=== PATIENT | male | born 1930 | race Caucasian/White ===

== ENCOUNTER 2019-04-23 08:05 | Day surgery (SDC) | payer OTHER, MEDICARE ==
--- OUTSIDE RECORDS SUMMARY | 2019-04-23 08:08 | XMS REPORT | Summary of Care ---
:1930 Author Organization [facility] Address [address] [place] [address]- Encounter HQ Encntr_alijavier(FIN) [phone] Date(s): 07/24/18 - 07/25/18 [facility] [place] [address] [place] [address]- [phone] Vital Signs No data available for this section Problem List Condition Effective Dates Status Health Status Informant Memory loss(Confirmed) Active CTS (carpal tunnel Active syndrome)(Confirmed) Mild dementia(Confirmed) Active Depression(Confirmed) Active Diabetes mellitus type II(Confirmed) Active HTN - Hypertension(Confirmed) Active Hyperlipidemia(Confirmed) Active Paresthesias(Confirmed) Active Right shoulder pain(Confirmed) Active Allergies, Adverse Reactions, Alerts No Known Medication Allergies Medications No data available for this section Results No data available for this section Immunizations No data available for this section Procedures No data available for this section Social History Social History Type Response Smoking Status Never smoker; Exposure to Tobacco Smoke None; Cigarette Smoking Last 365 Days No; Reg Smoking Cessation Counseling No entered on: 01/01/19 Assessment and Plan No data available for this section
--- OUTSIDE RECORDS SUMMARY | 2019-04-23 08:08 | XMS REPORT | Summary of Care ---
:1930 Author Organization [facility] [place] Address [address] [place] [address]- Encounter HQ Denise(GUY) [phone] Date(s): 01/01/19 - 01/01/19 [facility] [place] [address] [place] [address]- [phone] Discharge Disposition: Home or Self Care Attending Physician: Jean-Paul Gudino MD Vital Signs Most recent to oldest [Reference Range]: 1 Height 162.56 cm (01/01/19 1:51 PM) Blood Pressure [90-140/60-90 mmHg] 107/41 mmHg (01/01/19 1:51 PM) Respiratory Rate [14-20 BRMIN] 16 BRMIN (01/01/19 1:51 PM) Peripheral Pulse Rate [60-100 bpm] 58 bpm *LOW* (01/01/19 1:51 PM) Weight 54.091 kg (01/01/19 1:51 PM) Body Mass Index 20.47 m2 (01/01/19 1:51 PM) Problem List Condition Effective Dates Status Health Status Informant Memory loss(Confirmed) Active CTS (carpal tunnel Active syndrome)(Confirmed) Mild dementia(Confirmed) Active Depression(Confirmed) Active Diabetes mellitus type II(Confirmed) Active HTN - Hypertension(Confirmed) Active Hyperlipidemia(Confirmed) Active Paresthesias(Confirmed) Active Right shoulder pain(Confirmed) Active Allergies, Adverse Reactions, Alerts No Known Medication Allergies Medications Januvia 50 mg, PO, Daily, 0 Refill(s) Start Date: 01/01/19 Status: Orderedmemantine 10 mg oral tablet 10 mg=1 tab, PO, BID, # 60 tab, 3 Refill(s), Pharmacy: [email or web address] [id number] Start Date: 01/01/19 Stop Date: 05/01/19 Status: Orderedmirtazapine 7.5 mg, PO, Bedtime, 0 Refill(s) Start Date: 01/01/19 Status: OrderedPreserVision AREDS 2 1 cap, PO, BID, 0 Refill(s) Start Date: 01/01/19 Status: Ordered Results No data available for this section [...]
--- OUTSIDE RECORDS SUMMARY | 2019-04-23 08:08 | XMS REPORT | Summary of Care ---
:1930 Author Organization [facility] [place] Address [address] [place] [address]- Encounter HQ Denise(GUY) [phone] Date(s): 07/17/18 - 07/17/18 [facility] [place] [address], [place] [address]- [phone] Discharge Disposition: Home or Self Care Attending Physician: Jean-Paul Gudino MD Referring Physician: Jean-Paul Gudino MD Vital Signs Most recent to oldest [Reference Range]: 1 Height 162.56 cm (07/17/18 1:24 PM) Blood Pressure [90-140/60-90 mmHg] 140/49 mmHg (07/17/18 1:24 PM) Peripheral Pulse Rate [60-100 bpm] 70 bpm (07/17/18 1:24 PM) Weight 58.636 kg (07/17/18 1:24 PM) Body Mass Index 22.19 m2 (07/17/18 1:24 PM) Problem List Condition Effective Dates Status Health Status Informant Memory loss(Confirmed) Active CTS (carpal tunnel Active syndrome)(Confirmed) Mild dementia(Confirmed) Active Depression(Confirmed) Active Diabetes mellitus type II(Confirmed) Active HTN - Hypertension(Confirmed) Active Hyperlipidemia(Confirmed) Active Paresthesias(Confirmed) Active Right shoulder pain(Confirmed) Active Allergies, Adverse Reactions, Alerts No Known Medication Allergies Medications galantamine 4 mg oral tablet 4 mg=1 tab, PO, BID, # 60 tab, 3 Refill(s), Pharmacy: [facility] [id number] Start Date: 07/19/18 Stop Date: 10/18/18 Status: Discontinuedmemantine 5 mg oral tablet =1 tab, PO, BID, # 60 tab, Refill(s) 2, Pharmacy: [facility] [id number] Start Date: 11/13/18 Stop Date: 01/01/19 Status: DiscontinuedNamenda 5 mg oral tablet 5 mg=1 tab, PO, BID, # 60 tab, 3 Refill(s), Pharmacy: [facility] [id number] Start Date: 07/19/18 Stop Date: 11/13/18 Status: Completed Results No data available for this section [...]
--- OUTSIDE RECORDS SUMMARY | 2019-04-23 08:08 | XMS REPORT | Continuity of Care Document ---
:1930 Author Organization [facility] Care Team Providers Name Role Phone [facility] Unavailable Unavailable Problems Problem Status Onset Classification Date Comments Source Date Reported Memory loss Active Problem 02/12/2019 [facility] CTS (Confirmed) Active Problem 02/12/2019 [facility] Mild dementia Active Problem 02/12/2019 [facility] Depression Active Problem 02/12/2019 [facility] Diabetes mellitus Active Problem 02/12/2019 [facility] type II Neuro HTN - Hypertension Active Problem 02/12/2019 [facility] Hyperlipidemia Active Problem 02/12/2019 [facility] Paresthesias Active Problem 02/12/2019 [facility] Right shoulder Active Problem 02/12/2019 [facility] pain [facility] Amnesia (finding) Active Problem 04/15/2019 [facility] Carpal tunnel Active Problem 04/15/2019 [facility] syndrome [facility] (disorder) Dementia Active Problem 04/15/2019 [facility] (disorder) [facility] Depressive Active Problem 04/15/2019 [facility] disorder Neuro (disorder) Diabetes mellitus Active Problem 04/15/2019 [facility] type 2 (disorder) 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, systemic Neuro arterial (disorder) Hyperlipidemia Active Problem 04/15/2019 [facility] (disorder) [facility] Paresthesia Active Problem 04/15/2019 [facility] (finding) [facility] Shoulder pain Active Problem 04/15/2019 [facility] (finding) Neuro Medications Medication Details Route Status Patient Ordering Order Source Instructions Provider Date memantine 5 mg 5 mg=1 tab, Active [facility] oral tablet PO, BID, # 019 [facility] 60 tab, 0 Refill(s), other memantine 10 mg 10 mg=1 tab, Active [facility] oral tablet PO, BID, # 019 [facility] 60 tab, 3 Refill(s), Pharmacy: [facility] [id number] PreserVision 1 cap, PO, Active [facility] AREDS 2 BID, 0 019 [facility] Refill(s) Januvia 50 mg, PO, Active 05/28/2 [facility] Daily, 0 019 [facility] Refill(s) Mirtazapine 7.5 mg, PO, Active [facility] Bedtime, 0 019 [facility] Refill(s) memantine 5 mg =1 tab, PO, No Longer [facility] oral tablet BID, # 60 Active 019 [facility] tab, Refill(s) 2, Pharmacy: [facility] [id number] galantamine 4 mg 4 mg=1 tab, No Longer [facility] oral tablet PO, BID, # Active 018 [facility] 60 tab, 3 Refill(s), Pharmacy: [facility] [id number] Memantine 5 mg=1 tab, No Longer [facility] hydrochloride 5 PO, BID, # Active 018 [facility] MG Oral Tablet 60 tab, 3 [Namenda] Refill(s), Pharmacy: [facility] [id number] Allergies, Adverse Reactions, Alerts Substance Category Reaction Severity Reaction Status Date Comments Source type Reported No Known Assertion [facility] Allergies Immunizations No Data Provided for This Section Results No Data Provided for This Section Pathology Reports No Data Provided for This Section Diagnostic Reports No Data Provided for This Section Consultation Notes No Data Provided for This Section Discharge Summaries No Data Provided for This Section History and Physicals No Data Provided for This Section Vital Signs Vital Sign Value Date Comments Source Systolic (mm Hg) 128 04/12/2019 [facility] Diastolic (mm Hg) 48 04/12/2019 [facility] Heart Rate 64 04/12/2019 [facility] Respitory Rate 16 04/12/2019 [facility] Height 160.02 cm 04/12/2019 [facility] Weight 56.364 04/12/2019 [facility] BMI Calculated 22.01 04/12/2019 [facility] Weight 54.091 01/01/2019 [facility] Height 162.56 cm 01/01/2019 [facility] BMI Calculated 20.47 01/01/2019 [facility] Respitory Rate 16 01/01/2019 [facility] Heart Rate 58 01/01/2019 [facility] Systolic (mm Hg) 107 01/01/2019 [facility] Diastolic (mm Hg) 41 01/01/2019 [facility] Weight 58.636 07/17/2018 [facility] BMI Calculated 22.19 07/17/2018 [facility] Height 162.56 cm 07/17/2018 [facility] Systolic (mm Hg) 140 07/17/2018 [facility] Diastolic (mm Hg) 49 07/17/2018 [facility] Heart Rate 70 07/17/2018 [facility] Encounters Location Location Encounter Encounter Reason Attending ADM DC Status Source Details Type Number For Provider Date Date Visit Outpatient [id number] [place] 09/22 Active [facility] [facility] [id number] [place] 10/19 Active [facility] Out[facility] [id number] [place] 01/18 Active [facility] [place] [facility] [id number] [place] 02/22 Active [facility] [place] Outpatient [id number] [place] 03/27 Active [facility] [place] Outpatient [id number] [place] 07/17 Active [facility] [place] [facility] [id number] [place] 07/17 07/18 [facility] [place] [facility] Phone [phone] 07/24 07/26 [facility] [place] Outpatient [id number] [place] 10/18 Active [facility] [place] Outpatient [id number] [place] 01/01 Active [facility] [place] [facility] [id number] [place] 01/01 01/02 [facility] [place] Outpatient [id number] [place] 04/12 Active [facility] [id number] [place] 04/12 04/13 [facility] [place] Outpatient [id number] [place] 08/13 Active [facility] [place] Procedures No Data Provided for This Section Assessment and Plan No Data Provided for This Section Plan of Care No Data Provided for This Section Social History Social History Date Source Social History TypeResponse 04/12/[facility] Smoking Status Never smoker; Exposure to Tobacco Smoke None; Cigarette Smoking Last 365 Days No; Reg Smoking Cessation Counseling No entered on: 04/12/19 Family History No Data Provided for This Section Advance Directives No Data Provided for This Section Functional Status No Data Provided for This Section
--- OUTSIDE RECORDS SUMMARY | 2019-04-23 08:08 | XMS REPORT | Clinical Summary ---
:1930 Author Organization [facility] Address [address] [place] [address] Care Team Providers Name Role Phone Fortino Shore MD Primary Care Provider Allergies No Known Allergies Medications Medication Sig Dispensed Refills Start Date End Date Status pantoprazole TK 1 T PO QD PRF 6 07/25/2016 Active (PROTONIX) 40 MG HEARTBURN AND EC tablet INDIGESTION FERROUS SULFATE, Take 1 tablet 0 Active BULK, MISC daily as directed aspirin (ECOTRIN) Take 81 mg by 0 Active 81 MG enteric mouth daily. coated tablet atorvastatin TK 1 T PO QHS 12 06/24/2017 Active (LIPITOR) 40 MG tablet metoprolol TK 1 T PO QD. 3 06/20/2017 Active succinate XL STOP METOPROLOL (TOPROL-XL) 50 mg 25MG 24 hr tablet cyanocobalamin, Take by mouth. 0 Active vitamin B-12, (VITAMIN B-12) 500 mcg tablet extended release amLODIPine Take 5 mg by 0 Active (NORVASC) 5 mg mouth daily. tablet JANUVIA 50 mg 0 03/22/2018 Active tablet memantine TK 1 T PO BID 3 07/20/2018 Active (NAMENDA) 5 MG tablet mirtazapine Take 7.5 mg by 0 Active (REMERON) 15 MG mouth nightly. tablet vit A/vit C/vit Take by mouth. 0 Active E/zinc/copper (PRESERVISION AREDS ORAL) BENEFIBER, WHEAT Take by mouth. 0 Active DEXTRIN, ORAL FOLIC Take by mouth. 0 09/18/19 Discontinued ACID/MULTIVIT-MIN Take daily 19 (Therapy /LUTEIN (CENTRUM completed) SILVER ORAL) metFORMIN 3 06/20/2017 03/19/20 Discontinued (GLUCOPHAGE) 19 1,000 mg tablet lisinopril-hydroc Take 1 tablet by 90 tablet 3 08/29/2017 08/20/19 Discontinued hlorothiazide mouth daily. 19 (Reorder) (PRINZIDE,ZESTORE TIC) 20-12.5 mg per tablet sertraline 0 02/22/2018 12/07/19 Discontinued (ZOLOFT) 25 MG 19 tablet galantamine 4 mg 2 (two) 0 01/18/2018 03/19/20 Discontinued (RAZADYNE) 8 MG times a day. 19 tablet vit A/vit C/vit Take by mouth. 0 09/18/19 Discontinued E/zinc/copper 19 (Therapy (ICAPS AREDS completed) ORAL) melatonin 3 mg Take by mouth. 0 09/18/19 Discontinued tablet 19 (Therapy completed) lisinopril-hydroc TAKE 1 TABLET BY 90 tablet 3 08/20/2018 03/19/20 Discontinued hlorothiazide MOUTH EVERY DAY 19 (PRINZIDE,ZESTORE TIC) 20-12.5 mg per tablet polyethylene Take 17 g by 30 packet 0 12/08/2018 01/08/20 glycol (MIRALAX) mouth daily for 19 17 gram packet 30 days. psyllium husk Take 1 packet by 30 packet 0 12/08/2018 01/08/20 (METAMUCIL) 6 mouth daily for 19 gram packet 30 days. hydrocortisone-pr Apply 1 1 g 0 12/07/2018 01/07/20 amoxine (EPIFOAM) application 19 1-1 % foam topically 3 (three) times a day for 30 days. 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 Overview: 31mm History of coronary artery bypass graft 10/04/2016 Aortic valve disorder 09/20/2016 Encounters Date Type Specialty Care Team Description 03/19/2019 Office Visit Cardiology Ron Mercado S/P TAVR (transcatheter aortic valve replacement) (Primary Dx); MD Nolan History of coronary artery bypass graft 12/06/2018 Emergency General Internal Z[place]ma, Gastrointestinal hemorrhage with melena (Primary Dx); - Medicine Vaibhav Will, Chronic idiopathic constipation 12/07/2018 MD Badillo, MD Solange Mancuso Martina C., MD 09/27/2018 Multidisciplinary Visit Cardiology Joe Dalton S/P TAVR ( transcatheter aortic valve replacement) (Primary Dx); MD Fifi Coronary artery disease involving [place] heart with angina pectoris, unspecified vessel or lesion type (HCC); History of coronary artery bypass graft 09/18/2018 Office Visit Cardiology Ron Mercado Coronary artery disease involving [place] heart with angina pectoris, unspecified vessel or lesion type ( HCC) (Primary Dx); MD Nolan S/Taran TAVR (transcatheter aortic valve replacement); History of coronary artery bypass graft 08/20/2018 Refill Cardiology Ron Mercado Med Refill MD Nolan 05/07/2018 Orders Only Cardiology Mariela Hall S/P TAVR MA (transcatheter aortic valve replacement) (Primary Dx) after 04/22/2018 Family History Medical History Relation Name Comments Pancreatic cancer Brother Colon cancer Sister Relation Name Status Comments Brother Father Mother Sister Social History Tobacco Use Types Packs/Day Years Used Date Never Smoker Smokeless Tobacco: Never Used Alcohol Use Drinks/Week oz/Week Comments No Sex Assigned at Date Recorded Not on file Job Start Date Occupation Industry Not on file Not on file Not on file Travel History Travel Start Travel End No recent travel history available. Last Filed Vital Signs Vital Sign Reading Time Taken Comments Blood Pressure 142/65 03/19/2019 12:02 PM CDT Pulse 60 03/19/2019 12:02 PM CDT Temperature 35.6 C (96.1 F) 12/07/2018 3:51 PM CDT Respiratory Rate 17 12/07/2018 7:13 AM CDT Oxygen Saturation 97% 12/07/2018 3:51 PM CDT Inhaled Oxygen Concentration - - Weight 54.4 kg (120 lb) 03/19/2019 12:02 PM CDT Height 167.6 cm (5' 6") 03/19/2019 12:02 PM CDT Body Mass Index 19.37 03/19/2019 12:02 PM CDT Plan of Treatment Date Type Specialty Care Team Description 08/29/2019 Multidisciplinary Visit Cardiology Joe Dalton MD [address] [address] [phone] 09/24/2019 Office Visit Cardiology Ron Mercado MD [address] [facility] [address] [place] [address] [phone] Health Maintenance Due Date Last Done Comments SHINGLES VACCINES (#1) 1980 65+ PNEUMOCOCCAL VACCINE (1 of 2 - PCV13) 1995 INFLUENZA VACCINE 03/07/2019 04/12/2018 Procedures Procedure Name Priority Date/Time Associated Comments Diagnosis POC GLUCOSE Routine 12/07/2018 5:42 Results for this PM CDT procedure are in the results section. POC GLUCOSE Routine 12/07/2018 11:49 Results for this AM CDT procedure are in the results section. POC GLUCOSE Routine 12/07/2018 7:12 Results for this AM CDT procedure are in the results section. TOTAL IRON BINDING Routine 12/07/2018 5:00 Results for this CAPACITY AM CDT procedure are in the results section. FOLATE RBC (GROUP TEST) Routine 12/07/2018 5:00 Results for this AM CDT procedure are in the results section. FERRITIN LEVEL Routine 12/07/2018 5:00 Results for this AM CDT procedure are in the results section. ESTIMATED GFR Routine 12/07/2018 5:00 Results for this AM CDT procedure are in the results section. BASIC METABOLIC PANEL Routine 12/07/2018 5:00 Results for this AM CDT procedure are in the results section. HC COMPLETE BLD COUNT Routine 12/07/2018 5:00 Results for this W/AUTO DIFF AM CDT procedure are in the results section. POC GLUCOSE Routine 12/07/2018 12:13 Results for this AM CDT procedure are in the results section. OCCULT BLOOD, STOOL Routine 12/06/2018 11:00 Results for this PM CDT procedure are in the results section. ESTIMATED GFR STAT 12/06/2018 2:33 Results for this PM CDT procedure are in the results section. COMPREHENSIVE METABOLIC STAT 12/06/2018 2:33 Results for this PANEL PM CDT procedure are in the results section. HC COMPLETE BLD COUNT STAT 12/06/2018 2:33 Results for this W/AUTO DIFF PM CDT procedure are in the results section. ECG 12-LEAD Routine 09/27/2018 1:26 S/P TAVR Results for this PM PARKING INSPECTOR (transcatheter procedure are in aortic valve the results replacement) section. ECHOCARDIOGRAM 2D Routine 09/27/2018 12:02 S/P TAVR Results for this COMPLETE W MMODE PM PARKING INSPECTOR (transcatheter procedure are in SPECTRAL COLOR DOPPLER aortic valve the results (60497) replacement) section. ECG 12-LEAD Routine 09/18/2018 11:45 Coronary artery Results for this AM PARKING INSPECTOR disease involving procedure are in [place] heart with the results angina pectoris, section. unspecified vessel or lesion type (HCC) after 04/22/2018 Results POC glucose (12/07/2018 5:42 PM CDT)Only the most recent of4 resultswithin the time period is included. [facility] POC glucose 180 (H) 65 - 99 mg/dL [facility] Notified RN Meter ID: [id number] [employer] Former Supervisor: Marion Han Specimen Performing Organization Address City/[facility] Phone Number [facility] DEPARTMENT OF PATHOLOGY AND [address] [place] [address] Estimated GFR (12/07/2018 5:00 AM CDT)Only the most recent of2 resultswithin the time period is included. [facility] Estimated GFR 72 mL/min/1.73 [facility] Comment: [address] CatergoryUnitsInterpretation G1 >=90 Normal or high G2 60-89Mildly decreased B6g02-18Falzjp to moderately decreased E6m44-24Wwmsibnxrq to severely decreased G4 15-29Severely decreased G5 <15Kidney failure The eGFR was calculated using the Chronic Kidney Disease Epidemiology Collaboration (CKD-EPI) equation. Interpretation is based on recommendations of the National Kidney Foundation-Kidney Disease Outcomes Quality Initiative (NKF-KDOQI) published in 2014. Specimen Plasma specimen Performing Organization Address City/[facility]/Zipcode Phone Number [facility] DEPARTMENT OF PATHOLOGY AND [address] [place] [phone] Total iron binding capacity (12/07/2018 5:00 AM CDT) [facility] Iron level 40 (L) 59 - 158 ug/dL [facility] Iron binding capacity 180 (L) 200 - 400 ug/dL [facility] % Saturation 22.2 20.0 - 40.0 % [facility] Specimen Plasma specimen Performing Organization Address City/[facility]/Zipcode Phone Number [facility] DEPARTMENT OF PATHOLOGY AND [address] [place] [phone] [address] CBC with platelet and differential (12/07/2018 5:00 AM CDT)Only the most recent of2 resultswithin the time period is included. WBC 7.43 4.50 - 11.00 [facility] k/uL HOSPITAL RBC 3.59 (L) 4.40 - 6.00 [facility] m/uL [facility] HGB 10.9 (L) 14.0 - 18.0 [facility] HCT 33.8 (L) 41.0 - 51.0 % [facility] MCV 94.2 82.0 - 100.0 [facility] MCH 30.4 27.0 - 34.0 pg [facility] MCHC 32.2 31.0 - 37.0 [facility] g/[facility] RDW - SD 45.1 37.0 - 55.0 fL [facility] MPV 11.2 8.8 - 13.2 fL [facility] Platelet count 172 150 - 400 k/uL [facility] Nucleated RBC 0.00 /100 WBC [facility] Neutrophils 66.5 39.0 - 69.0 % [facility] Lymphocytes 18.0 (L) 25.0 - 45.0 % [facility] Monocytes 12.4 (H) 0.0 - 10.0 % [facility] Eosinophils 2.3 0.0 - 5.0 % [facility] Basophils 0.5 0.0 - 1.0 % [facility] Immature granulocytes 0.3Comment: 0.0 - 1.0 % [facility] "Immature [facility] granulocytes" (promyelocytes , myelocytes, metamyelocytes ) Specimen Blood Performing Organization Address City/[facility]/Zipcode Phone Number [facility] DEPARTMENT OF PATHOLOGY AND [address] [place] [address] [place] [phone] [place] [address] Folate RBC (group test) (12/07/2018 5:00 AM CDT) RBC folate 1,018 499 - 1,504 ng/mL [facility] Specimen Blood Performing Organization Address City/State/Zipcode Phone Number [facility] DE[facility]MENT OF PATHOLOGY AND [address] [place] [phone] Ferritin level (12/07/2018 5:00 AM CDT) Ferritin level 327 30 - 400 ng/mL [facility] Specimen Plasma specimen Performing Organization Address City/[facility] Phone Number [facility] DE[facility]MENT OF PATHOLOGY AND [address] [place] [phone] Basic metabolic panel (12/07/2018 5:00 AM CDT) Sodium 139 135 - 148 mEq/L [facility] Potassium 3.9 3.5 - 5.0 mEq/L [facility] Chloride 103 98 - 112 mEq/L [facility] CO2 24 24 - 31 mEq/L [facility] Anion gap 12@ANIO 7 - 15 mEq/L [facility] BUN 20 8 - 23 mg/dL [facility] Creatinine 0.94 0.70 - 1.20 mg/dL [facility] Glucose 102 (H) 65 - 99 mg/dL [facility] Calcium 9.3 8.8 - 10.2 mg/dL [facility] Specimen Plasma specimen Performing Organization Address City/[facility]code Phone Number [facility] DEPARTMENT OF PATHOLOGY AND [address] [place] [phone] Occult blood, stool (12/06/2018 11:00 PM CDT) Occult blood, Negative for occult blood. [facility] stool Comment: HOSPITAL Specimen Information Specimen Source: Stool Specimen Site: Nonpreserved Specimen Stool - Nonpreserved Performing Organization Address City/[facility] Phone Number [facility] DEPARTMENT OF PATHOLOGY AND [address] [place] [phone] Comprehensive metabolic panel (12/06/2018 2:33 PM CDT) Sodium 142 128 - 145 mEq/L [facility] Potassium 4.1 3.6 - 5.1 mEq/L [facility] CO2 30 18 - 33 mEq/L [facility] Chloride 103 98 - 108 mEq/L [facility] Glucose 135 (H) 73 - 118 mg/dL [facility] Calcium 9.8 8.0 - 10.3 mg/dL [facility] BUN 22 7 - 22 mg/dL [facility] Creatinine 0.9 0.7 - 1.2 mg/dL [facility] Alkaline phosphatase 47 (L) 53 - 128 U/L [facility] ALT 15 10 - 47 U/L [facility] AST 26 11 - 38 U/L [facility] Total bilirubin 0.8 0.2 - 1.6 mg/dL [facility] Albumin 3.6 3.3 - 5.5 g/dL [facility] Protein 6.1 (L) 6.4 - 8.1 g/dL [facility] Anion gap 9@ANIO 7 - 15 mEq/L [facility] A/G ratio 1.4 0.7 - 3.8 [facility] Specimen Plasma specimen Performing Organization Address City/State/Zipcode Phone Number DEPARTMENT OF PATHOLOGY AND [address] [place] [address] ECG 12 lead (09/27/2018 1:26 PM PARKING INSPECTOR)Only the most recent of2 resultswithin the time period is included. Ventricular rate 86 [facility] Atrial rate 86 [facility] WA interval 146 [facility] QRSD interval 84 [facility] QT interval 370 [facility] QTC interval 442 [facility] P axis 1 41 [facility] QRS axis 1 107 [facility] T wave axis 5 [facility] EKG impression ^^^ Poor data quality, interpretation may be adversely affected -Normal sinus rhythm-Rightward axis-Cannot rule out Anterior infarct (cited on or before 05-OCT-2017)-ST & T wave abnormality, consider inferior ischemia- Abnormal ECG-Compared to prior [facility] ECG--WA interval has increased-Questionable change in initial forces of Septal leads-T wave inversion now evident in Inferior leads-T wave amplitude has increased in Lateral leads-Reconfirmed by Kristen High MD ([id number]) on 2018 11:19:34 PM Specimen Narrative Performed At Performing Organization Address City/State/Zipcode Phone Number [facility] [address] [place] [address] Echocardiogram complete w contrast and 3D if needed (09/27/2018 12:02 PM PARKING INSPECTOR) Specimen Narrative Performed At [facility] Echocardiography Report Pat.Name:JOVANNI GOFF.ID:[id number] .Date: 09/27/2018 Refer.MD:JOE DALTON MD Exam Time: 11:28:00 AM Study Type:Routine Echo Height:63inWeight: 135lb BSA: 1.64 m2 DOBAge:1930,88Y Sex: MALEBP:132/63 Sonogrphr: BHARTI Vance FASE Pat. Stat.:Outpatient Room:[address] Status:Revised Echo Event ID:[id number] Order ID:[id number] Reason for Study:Prosthetic valve, no dysfunction -Routine (<3yr) History / Clinical:Chest Pain, Dizziness, Hyperlipidemia, Valvular Heart Disease; Aortic Stenosis, Coronary Artery Disease Procedures:2D Echo, Colorflow Doppler Race: SUMMARY: Normal LV and RV size and function. Well-seated transcatheter aortic valve with normal function. Mild to moderate aortic regurgitation,It appears to be mild the paravalvularleak and withtrace transvalvularcomponents.. FINDINGS: LV: LV size is normal. LV EF is normal. Overall wall motion is normal.Estimated EF is 65-69% RV: RV size is normal. RV systolic function is normal. LA: LA volume is moderately enlarged. RA: RA size is normal. AO: Aortic root diameter is normal. PETE: No pericardial effusion. AV: Well-seated transcatheter aortic valve. Mild to moderate aorticregurgitation,It appears to be mild the paravalvular leak and withtrace transvalvular components..Normal prosthetic valve velocity and gradient. TranscatheterAV Doppler velocity index is 1.0 (normal >0.50). MV: Mild mitral annular calcification. PV: No structural PV abnormalities noted. TV: No structural TV abnormalities noted. Mild tricuspid regurgitation Martel: LV relaxation is impaired. LV filling pressure is borderline elevated. Other:Estimated PA systolic pressure is 36 mmHg, assuming a mean RAPof 5 mmHg. MEASUREMENTS: 2D Parasternal [place] LVOT1.58 cmLA Ds 3.69 cm LVIDd 4.53 cmIndex2.76 cm/m LV Lfrd045.87 g(122-174) LVIDs 2.25 cmLVM Index80.41 g/m2 LV%fs50.43 % RWT0.4 IVSd0.86 cmLVOT2.21 cm LVPWd 0.91 cm LA Sng Plane LA Area19.75 cm2(8.8-23.4) LA Vol 77.19 ml Index47.07 ml/m LA LngAx5.36 cm LA Area22.13 cm2(8.8-23.4) LA Vol 62.21 xdVsdzx45.93 ml/m LA LngAx5.37 cm LA Area22.48 cm2(8.8-23.4) LA Vol 75.31 ml Index45.92 ml/m LA LngAx5.54 cm RA Sng Plane RA Area13.99 cm2(8.3-19.5) RA Vol 33.33 ml Index20.32 ml/m RA LngAx4.85 cm DOPPLER AV For Flow/TAE AV pkVel 103.77 cm/s (100-170) AV AC/ET 0.3 AV mnVel 71.92 cm/Vito TVI 24.87 cm AV pkPG 4.31 mmHgAVpkAcRt 1852.99 cm/s2 AV Mean G 2.43 mmHgAV EbMm102.05 cm/s2 AV AC105 msec (83-118) AV Area3.8 cm2(3-5) AV ET346 msec LVOT For Flow LVOT Area3.8 cm2 LVOT SV94.46 ml EDASvuJgf30.23 cm/sHR 58.91 bpm LVOTpkPG 3.4 mmHgLVOT CO 5.56 l/min LVOTmnPG2.34 mmHgLVOT CI 3.39 l/m/m2 LVOT TVI 24.85 cm TV Pressure Gradient TV PkVel 277.83 cm/s TV PG30.88 mmHg Signed 10/02/2018 10:34:27 AM Lin Barroso M.D. Revised Procedure Note Interface, Radiology Results In - 10/02/2018 10:34 AM PARKING INSPECTOR [facility] Echocardiography Report Pat.Name: JOVANNI GOFF JR Pat.ID: [id number] St.Date: 09/27/2018 Refer.MD: JOE DALTON MD Exam Time: 11:28:00 AM Study Type:Routine Echo Height: 63in Weight: 135lb BSA: 1.64 m2 Age: 12 1930,88Y Sex: MALE BP: 132/63 Sonogrphr: BHARTI Vance FASE Pat. Stat.:Outpatient Room: [place] [address] Study Status:Revised Echo Event ID:[id number] Order ID: [id number] Reason for Study:Prosthetic valve, no dysfunction -Routine (<3yr) History / Clinical:Chest Pain, Dizziness, Hyperlipidemia, Valvular Heart Disease; Aortic Stenosis, Coronary Artery Disease Procedures:2D Echo, Colorflow Doppler Race: SUMMARY: Normal LV and RV size and function. Well-seated transcatheter aortic valve with normal function. Mild to moderate aortic regurgitation, It appears to be mild the paravalvular leak and with trace transvalvular components.. FINDINGS: LV: LV size is normal. LV EF is normal. Overall wall motion is normal. Estimated EF is 65-69% RV: RV size is normal. RV systolic function is normal. LA: LA volume is moderately enlarged. RA: RA size is normal. AO: Aortic root diameter is normal. PETE: No pericardial effusion. AV: Well-seated transcatheter aortic valve. Mild to moderate aortic regurgitation, It appears to be mild the paravalvular leak and with trace transvalvular components.. Normal prosthetic valve velocity and gradient. Transcatheter AV Doppler velocity index is 1.0 (normal >0.50). MV: Mild mitral annular calcification. PV: No structural PV abnormalities noted. TV: No structural TV abnormalities noted. Mild tricuspid regurgitation Martel: LV relaxation is impaired. LV filling pressure is borderline elevated. Other: Estimated PA systolic pressure is 36 mmHg, assuming a mean RAP of 5 mmHg. MEASUREMENTS: 2D Parasternal [place] LVOT 1.58 cm LA Ds 3.69 cm LVIDd 4.53 cm Index 2.76 cm/m LV Mass 131.87 g (122-174) LVIDs 2.25 cm LVM Index 80.41 g/m2 LV%fs 50.43 % RWT 0.4 IVSd 0.86 cm LVOT 2.21 cm LVPWd 0.91 cm LA Sng Plane LA Area 19.75 cm2 (8.8-23.4) LA Vol 77.19 ml Index 47.07 ml/m LA LngAx 5.36 cm LA Area 22.13 cm2 (8.8-23.4) LA Vol 62.21 ml Index 37.93 ml/m LA LngAx 5.37 cm LA Area 22.48 cm2 (8.8-23.4) LA Vol 75.31 ml Index 45.92 ml/m LA LngAx 5.54 cm RA Sng Plane RA Area 13.99 cm2 (8.3-19.5) RA Vol 33.33 ml Index 20.32 ml/m RA LngAx 4.85 cm DOPPLER AV For Flow/TAE AV pkVel 103.77 cm/s (100-170) AV AC/ET 0.3 AV mnVel 71.92 cm/s AV TVI 24.87 cm AV pkPG 4.31 mmHg AVpkAcRt 1852.99 cm/s2 AV Mean G 2.43 mmHg AV DeRt 300.05 cm/s2 AV AC 105 msec (83-118) AV Area 3.8 cm2 (3-5) AV ET 346 msec LVOT For Flow LVOT Area 3.8 cm2 LVOT SV 94.46 ml LVOTpkVel 92.23 cm/s HR 58.91 bpm LVOTpkPG 3.4 mmHg LVOT CO 5.56 l/min LVOTmnPG 2.34 mmHg LVOT CI 3.39 l/m/m2 LVOT TVI 24.85 cm TV Pressure Gradient TV PkVel 277.83 cm/s TV PG 30.88 mmHg Signed 10/02/2018 10:34:27 AM Lin Barroso M.D. Revised Performing Organization Address City/State/Zipcode Phone Number [facility] [address] [place] [address] after 04/22/2018 Insurance Payer Benefit Plan / Subscriber ID Effective Dates Phone Address Type Group MEDICARE MEDICARE PART A xxxxxxxxxxx 1995-[place], [place] Medicare AND B t AARP AARP SUPPLEMENT xxxxxxxxxxx 2010-Present Commercial Advance Directives For more information, please contact: [phone] Type Date Recorded Patient Physical Damage Appraiser Explanation Advance Directives, Living Will and Medical Power of Spray Operator
--- OUTSIDE RECORDS SUMMARY | 2019-04-23 08:09 | XMS REPORT | Summary of Care ---
:1930 Author Organization [facility] [place] Address [address] [place] [address]- Encounter HQ Denise(GUY) [id number] Date(s): 04/12/19 - 04/12/19 [facility] [place] [address] [place], [place] [address]- [phone] Discharge Disposition: Home or Self Care Attending Physician: Jean-Paul Gudino MD Referring Physician: Jean-Paul Gudino MD Vital Signs Most recent to oldest [Reference Range]: 1 Height 160.02 cm (04/12/19 11:40 AM) Blood Pressure [90-140/60-90 mmHg] 128/48 mmHg (04/12/19 11:40 AM) Respiratory Rate [14-20 BRMIN] 16 BRMIN (04/12/19 11:40 AM) Peripheral Pulse Rate [60-100 bpm] 64 bpm (04/12/19 11:40 AM) Weight 56.364 kg (04/12/19 11:40 AM) Body Mass Index 22.01 m2 (04/12/19 11:40 AM) Problem List Condition Effective Dates Status Health Status Informant Memory loss(Confirmed) Active CTS (carpal tunnel Active syndrome)(Confirmed) Mild dementia(Confirmed) Active Depression(Confirmed) Active Diabetes mellitus type II(Confirmed) Active HTN - Hypertension(Confirmed) Active Hyperlipidemia(Confirmed) Active Paresthesias(Confirmed) Active Right shoulder pain(Confirmed) Active Allergies, Adverse Reactions, Alerts No Known Medication Allergies Medications memantine 5 mg oral tablet 5 mg=1 tab, PO, BID, # 60 tab, 0 Refill(s), other Start Date: 03/13/19 Status: Ordered Results No data available for this section Immunizations No data available for this section Procedures No data available for this section Social History Social History Type Response Smoking Status Never smoker; Exposure to Tobacco Smoke None; Cigarette Smoking Last 365 Days No; Reg Smoking Cessation Counseling No entered on: 04/12/19 Assessment and Plan No data available for this section
[2019-04-23] MEDS ORDERED: Ringers Lactate 1,000 ML IV ONE (08:27)
[2019-04-23] MEDS ORDERED: PROPOFOL 200 MG/20 ML VIAL IV ONE (09:45)
[2019-04-23] MEDS ORDERED: LIDOCAINE 1% MPF 5 ML VIAL ONE (09:45)
--- NOTE | 2019-04-23 10:02 | ENDO RPT ---
[address], [address] EGD PROCEDURE REPORT EXAM DATE: 04/23/2019 PATIENT NAME: Jovanni Tobar MR#: [id number] BIRTHDATE: 1930 ATTENDING: Kong Fernandez Dr STATUS: outpatient [employer] HELPER: Caremlina Rodas RN, Bruce Venegas RN, and Lisseth Lion INDICATIONS: The patient is a 88 yr old Male here for an EGD due to dyspepsia and bloating PROCEDURE PERFORMED: EGD with biopsy MEDICATIONS: Per Anesthesia. TOPICAL ANESTHETIC: none CONSENT: The patient understands the risks and benefits of the procedure and understands that these risks include, but are not limited to: sedation, allergic reaction, infection, perforation and/or bleeding. Alternative means of evaluation and treatment include, among others: physical exam, x-rays, and/or surgical intervention. The patient elects to proceed with this endoscopic procedure. DESCRIPTION OF PROCEDURE: During intra-op preparation period all mechanical medical equipment was checked for proper function. Hand hygiene and appropriate measures for infection prevention was taken. Procedure, possible complications, and alternatives including but not limited to the possibility of bleeding, perforation, tear, infection, sepsis, need for surgery, need for blood transfusion, and anesthesia related complications were explained to the patient. After the risks, benefits and alternatives of the procedure were thoroughly explained, Informed consent was verified, confirmed and timeout was successfully executed by the treatment team. The patient was placed in the left lateral position. The patient was anesthetized with topical anesthesia. Through the anesthetized oropharyngeal area, the scope was passed without any difficulty. The EG-[id number] ([id number]) endoscope was introduced through the mouth and advanced to the third portion of the duodenum. Retroflexed views revealed a moderate sized hiatal hernia. The gastroscope was then slowly withdrawn and removed. A moderate sized hiatal hernia was found Mild gastritis was found in the antrum. Multiple biopsies were obtained and sent to pathology. Duodenitis was found in the bulb and descending duodenum. ADVERSE EVENTS: There were no complications. IMPRESSIONS: 1. Moderate sized hiatal hernia 2. Mild gastritis in the antrum, s/p biopsies 3. Mild duodenitis in the bulb and descending duodenum RECOMMENDATIONS: 1. await biopsy results 2. acid suppression therapy REPEAT EXAM: Kong Fernandez Dr eSigned: Kong Fernandez Dr 04/23/2019 10:02 AM cc: [place] CPT CODES: ICD9 CODES: PATIENT NAME: Jovanni Tobar MR#: [id number]
--- NOTE | 2019-04-23 10:28 | ENDO RPT ---
[address], [address] COLONOSCOPY PROCEDURE REPORT EXAM DATE: 04/23/2019 PATIENT NAME: Jovanni Tobar MR #: [id number] BIRTHDATE: 1930 ATTENDING: Kong Fernandez Dr STATUS: outpatient VICE PRINCIPAL: Bruce Venegas RN, Lisseth Lion, and Carmelina Rodas RN INDICATIONS: The patient is a 88 yr old Male here for a colonoscopy due to hematochezia, change in bowel habits, constipation, and family history of colon cancer PROCEDURE PERFORMED: Colonoscopy with biopsy - cold polypectomy MEDICATIONS: Per Anesthesia. ESTIMATED BLOOD LOSS: None CONSENT: The patient understands the risks and benefits of the procedure and understands that these risks include, but are not limited to: sedation, allergic reaction, infection, perforation and/or bleeding. Alternative means of evaluation and treatment include, among others: physical exam, x-rays, and/or surgical intervention. The patient elects to proceed with this endoscopic procedure. DESCRIPTION OF PROCEDURE: During intra-op preparation period all mechanical medical equipment was checked for proper function. Hand hygiene and appropriate measures for infection prevention was taken. Procedure, possible complications, alternatives including, but not limited to possibility of bleeding, perforation, tear, infection, sepsis, need for surgery, need for blood transfusion, were explained to the patient. After the risks, benefits and alternatives of the procedure were thoroughly explained, Informed consent was verified, confirmed and timeout was successfully executed by the treatment team. The patient was placed in the left lateral position. A digital rectal exam was performed and revealed external hemorrhoids. After appropriate level of anesthesia, the scope was passed. The EG-[id number] ([id number]) and [id number] ([id number]) endoscope was introduced through the anus and advanced to the terminal ileum which was intubated for a short distance. The quality of the prep was fair. The instrument was then slowly withdrawn as the colon was fully examined. Scope withdrawal time was 9 minutes. COLON FINDINGS: A smooth sessile polyp measuring 6 mm in size was found at the cecum. A polypectomy was performed with cold forceps. Mild diverticulosis was noted in the sigmoid colon. No bleeding was noted from the diverticulosis. Small internal and external hemorrhoids were found. Retroflexed views revealed small hemorrhoids. The scope was then completely withdrawn from the patient and the procedure terminated. ADVERSE EVENTS: There were no complications. IMPRESSIONS: 1. 6 mm sessile polyp at the cecum; polypectomy was performed with cold forceps 2. Mild diverticulosis in the sigmoid colon 3. Small internal and external hemorrhoids 4. Intubation to terminal ileum RECOMMENDATIONS: 1. await biopsy results 2. avoid NSAIDS for 2 weeks 3. fiber rich diet RECALL: Kong Fernandez Dr eSigned: Kong Fernandez Dr 04/23/2019 10:27 AM cc: [place] CPT CODES: ICD9 CODES: PATIENT NAME: Jovanni Tobar MR#: [id number]
[2019-04-23 11:00] VITALS: O2SAT 100
[2019-04-23 11:01] VITALS: BP 126/56; TEMP 97.1
== END 2019-04-23 09:33 | disposition home or self-care (01) ==
LOC: OR 08:05
PROVIDERS: ATTEND Internal Medicine Gastroenterology
PROC: 0DBH8ZX Excision of Cecum, Via Natural or Artificial Opening Endoscopic, Diagnostic (ICD-10-PCS; principal; 2019-04-23 09:30)
PROC: 0DB68ZX Excision of Stomach, Via Natural or Artificial Opening Endoscopic, Diagnostic (ICD-10-PCS; 2019-04-23 09:30)
DX: K29.50 Unspecified chronic gastritis without bleeding (principal); D12.0 Benign neoplasm of cecum; K57.30 Diverticulosis of large intestine without perforation or abscess without bleeding; K29.80 Duodenitis without bleeding; K44.9 Diaphragmatic hernia without obstruction or gangrene; K64.8 Other hemorrhoids; K64.4 Residual hemorrhoidal skin tags; K21.9 Gastro-esophageal reflux disease without esophagitis; I10 Essential (primary) hypertension; E11.9 Type 2 diabetes mellitus without complications; Z95.2 Presence of prosthetic heart valve; I25.10 Atherosclerotic heart disease of native coronary artery without angina pectoris; Z95.1 Presence of aortocoronary bypass graft; Z80.0 Family history of malignant neoplasm of digestive organs
CPT/HCPCS: 88312; 82962; 88305; 45380; 43239; J2704